=== PATIENT | male | born 1990 | race Caucasian/White ===

== ENCOUNTER 2017-10-18 09:01 | Emergency (ER) | payer OTHER ==
[~2017-10-18] VITALS: Ht 175.3 cm; Wt 63.5 kg
[~2017-10-18 09:01] MED LIST: CLEOCIN HCL150 MG PO; CLEOCIN HCL300 MG PO; HYDROCODONE-APA1 TA1 PO; NOHOMEMEDICATIONS; NORCO 5-325 TA1 EACH PO
[2017-10-18] MEDS ORDERED: BACTRIM DS TAB1 EACH PO (09:47)
[2017-10-18] MEDS ORDERED: HYDROCODON-ACE1 EAC7 PO (09:47)
[2017-10-18 10:03] VITALS: BP 141/83
== END 2017-10-18 10:04 | disposition home or self-care (01) ==
LOC: M.ERS 09:01
DX: L02.01 Cutaneous abscess of face (principal); F90.9 Attention-deficit hyperactivity disorder, unspecified type; F31.9 Bipolar disorder, unspecified; F91.3 Oppositional defiant disorder; Z86.14 Personal history of Methicillin resistant Staphylococcus aureus infection; Z88.8 Allergy status to other drugs, medicaments and biological substances